=== PATIENT | male | born 2000 | race Caucasian/White ===

== ENCOUNTER 2023-01-11 12:38 | Outpatient (CLI) | payer BC, SELFPAY | END 2023-01-11 12:39 | disposition home or self-care (01) | PROVIDERS: PCP Family Medicine; Visit Provider Physician Assistant Medical | DX: R53.83 Other fatigue (principal) | CPT/HCPCS: 82306; 84443 ==

== ENCOUNTER 2023-04-04 12:39 | Emergency (ER) | payer OTHER, BC, SELFPAY ==
[2023-04-04 12:44] VITALS: BP 100/60; PULSE 84; RESP 16; TEMP 36.7; O2SAT 96; BMI 17.8
--- NOTE | 2023-04-04 13:08 | ED_ITS ---
HPI - Wound/Laceration General Chief Complaint: Laceration/Wound Stated Complaint: R pointer finger lac Time Seen by Provider: 04/04/23 12:42 History of Present Illness HPI narrative: This 22-year-old male comes in with a laceration to his right index finger. He was using a knife and accidentally cut into the distal portion of the right index finger. He has a laceration extending half-way through the midportion of the nail. They skin around this area not much involved. The primary laceration is actually through the top portion of the fingernail. The patient is unsure of his tetanus status. Related Data Home Medications Medication Instructions Recorded Confirmed No Known Home Medications 04/04/23 04/04/23 Allergies Allergy/AdvReac Type Severity Reaction Status Date / Time No Known Allergies Allergy Unknown Verified 01/11/23 11:39 Review of Systems Status of ROS: Reports: 10 or more systems reviewed and unremarkable except as noted in History and below Narrative: Constitutional: No fevers, no weight gain or loss. Eyes: No discharge. No vision changes. HENT: No congestion, no sore throat, no ear pain. Cardiovascular: No chest pain, no palpitations. Respiratory: No shortness of breath, no wheezes, no cough. Gastrointestinal: No abdominal pain, no vomiting, no diarrhea. Genitourinary: No dysuria, no hematuria. Musculoskeletal: Normal range of motion. Skin: No rashes, no pruritis. Neurological: No dizziness, weakness, sensory change, speech change. Endo/Heme/Allergies: No bruising or bleeding. No polydipsia. Pysch: no suicidality, no anxiety, no insomnia. All other systems reviewed and are negative. [facility] Medical History (Updated 04/04/23 @ 13:11 by Ariel Zuniga MD) Neck pain ?M54.2 - Cervicalgia (ICD-10) No significant past medical history Surgical History No significant past surgical history Social History Narrative: electronic cigarette use marijuana use Smoking Status: Never smoker Do you use any of these nicotine containing products: Vaping Products Second hand tobacco smoke exposure: No How often do you have a drink containing alcohol: never How often do you have six or more drinks on one occasion: Never AUDIT-C Alcohol total score: 0 Non-prescribed substance use: marijuana (any form) Little interest or pleasure in doing things: nearly every day Feeling down, depressed, or hopeless: more than half the days Exam Narrative: Exam Narrative: Constitutional: Well-developed, well-nourished, no acute distress. HEENT: Normocephalic, atraumatic. Neck: Normal range of motion. Nontender. Supple. Heart: Intact distal pulses. Lungs: No chest discomfort. No wheezes, rhonchi, or rales. Abdomen: Nontender. Back: Normal range of motion. Extremities: Normal range of motion. 1 cm laceration involving the right index finger nail. Skin: Intact. No rash. Warm. No erythema or pallor. Neurologic: No altered sensation. No weakness. Alert and oriented. Psychiatric: No suicidality. No anxiety or depression. No insomnia. Nursing notes and vitals signs are reviewed. Const: Vital Signs, click to edit/add: Vital Signs - 24 hr 04/04/23 12:44 Temperature 98.1 F Pulse Rate [Pulse Oximeter] 84 Respiratory Rate 16 Blood Pressure [Ri ght Upper Arm] 100/60 Pulse Oximetry 96 Oxygen Delivery Me thod Room Air Course Vital Signs Vital signs: Initial Vital Signs Temperature 98.1 F 04/04/23 12:44 Temperature Source Temporal Artery Scan 04/04/23 12:44 Pulse Rate 84 04/04/23 12:44 Respiratory Rate 16 04/04/23 12:44 Blood Pressure 100/60 04/04/23 12:44 Blood Pressure Mean 73 04/04/23 12:44 Blood Pressure Position Sitting 04/04/23 12:44 Pulse Oximetry 96 04/04/23 12:44 Oxygen Delivery Method Room Air 04/04/23 12:44 Vital Signs Temperature 98.1 F 04/04/23 12:44 Pulse Rate 84 04/04/23 12:44 Respiratory Rate 16 04/04/23 12:44 Blood Pressure 100/60 04/04/23 12:44 Pulse Oximetry 96 04/04/23 12:44 Oxygen Delivery Method Room Air 04/04/23 12:44 Temperature 98.1 F 04/04/23 12:44 Pulse Rate 84 04/04/23 12:44 Respiratory Rate 16 04/04/23 12:44 Blood Pressure 100/60 04/04/23 12:44 Pulse Oximetry 96 04/04/23 12:44 Oxygen Delivery Method Room Air 04/04/23 12:44 MDM - Wound/Laceration MDM Narrative Medical decision making narrative: This patient has a laceration in the right index finger nail. There is no particular displacement or gap as a result of this wound. There is no indication for suture repair. Dermabond was applied after cleansing the wound. The patient did receive a tetanus vaccination. Instructions were given regarding wound care. Discharge Plan Discharge Clinical Impression: Laceration Patient Disposition: Home, Self-Care Condition: Stable Additional Instructions: Keep wound clean and dry. Follow up with MD as needed. Return if worsening. Prescriptions: No Action No Known Home Medications Follow Up/Referrals: Danny Muro MD [Primary Care Provider] - [facility]
--- NOTE | 2023-04-04 13:20 | ED.NURSE ---
pt came in with a cut on the right pointer finger from a serrated knife cutting food at work. Cut was cleansed with chlorhexidine gluconate and sterile water. put Dermabond on cut. Bleeding was controlled.
--- NOTE | 2023-04-04 14:02 | ED.NURSE ---
Followed care with primary and agreed with assessments.
== END 2023-04-04 14:04 | disposition home or self-care (01) ==
LOC: ED 13:42
PROVIDERS: Emergency Provider Emergency Medicine Emergency Medical Services; PCP Physician Assistant Medical
DX: S61.210A Laceration without foreign body of right index finger without damage to nail, initial encounter (principal)
CPT/HCPCS: 90471; 99283; 99284

== ENCOUNTER 2023-11-27 16:38 | Emergency (ER) | payer BC, SELFPAY ==
[2023-11-27 17:11] VITALS: BP 100/63; PULSE 69; RESP 16; TEMP 37.5; O2SAT 98; BMI 17.8
--- OUTSIDE RECORDS SUMMARY | 2023-11-27 20:37 | XMS_ITS | Encounter Summary ---
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 Role Phone [facility]- Primary Care Provider Encounter Details Date Type Department Care Team (Latest Contact Info) Description 07/24/2023 Travel Social History Tobacco Use Types Packs/Day Years Used Date Smoking Tobacco: Former Smokeless Tobacco: Never Alcohol Use Standard Drinks/Week Comments Yes 0 (1 standard drink = 0.6 oz pur e alcohol) Sex and Gender Information Value Date Recorded Sex Assigned at Not on file Gender Identity Not on file Sexual Orientation Not on file COVID-19 Exposure Response Date Recorded In the last 10 days, have yo u been in contact with someone who was confirmed or suspected to have Coronavirus/COVID-19? No / Unsure 07/24/2023 5:03 AM CDT documented as of this encounter Plan of Treatment Not on file documented as of this encounter Visit Diagnoses Not on filedocumented in this encounter Care Teams Bicycle Fitter Relationship Specialty Start Date End Date [facility]- [address] [place] [address] PCP - General 07/24/23 documented as of this encounter
--- OUTSIDE RECORDS SUMMARY | 2023-11-27 20:37 | XMS_ITS | Clinical Summary ---
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 Phone Unavailable Primary Care Provider Unavailabl e Allergies No known active allergies Medications No known medications Immunizations Name Administration Dates Next Due COVID-19 Vaccine: Pfizer Dos e 1 (Purple- 12+ Yrs) [facility] 03/04/2021 Tdap (7 years and older) 07/13/2017 Social History Tobacco Use Types Packs/Day Years Used Date Smoking Tobacco: Never Assessed Sex and Gender Information Value Date Recorded Sex Assigned at Not on file Gender Identity Not on file Sexual Orientation Not on file Job Start Date Occupation Industry Not on file Not on file Not on file Last Filed Vital Signs Vital Sign [place] Time Taken Comments Blood Pressure 127/72 07/13/2017 10:21 PM CDT Pulse 88 07/13/2017 10:21 PM CDT Temperature 36.6 ??C (97.9 ??F) 07/13/2017 10:21 PM C DT Respiratory Rate 16 07/13/2017 10:21 PM CDT Oxygen Saturation 99% 07/13/2017 10:21 PM CDT Inhaled Oxygen Concentration - - Weight 61.2 kg (135 lb) 07/13/2017 10:21 PM CDT Height 182.9 cm (6') 07/13/2017 10:21 PM CDT Body Mass Index 18.31 07/13/2017 10:21 PM CDT Plan of Treatment Health Maintenance Due Date Last Done Comments Hepatitis B Vaccine (Standin g Order) (1 of 3 - 3-dose series) 2002 HPV Vaccine (Standing Order) (1 - Male 2-dose series) 2011 COVID-19 Vaccine (2 - 2022-2 4 season) 2023 03/04/2021 Influenza Vaccine Seasonal (Standing Order) (#1) 2023 TETANUS (Standing Order) 07/13/2027 07/13/2017 PERTUSSIS (Standing Order) Completed 07/13/2017 Pneumococcal/PCV20 Vaccine: Pediatrics (2-5 yrs) and At-Risk Patients (6-64 yrs) (Standing Order) Aged Out No longer eligible b ased on patient's age to complete this topic
--- OUTSIDE RECORDS SUMMARY | 2023-11-27 20:37 | XMS_ITS | Encounter Summary ---
Author Name Unknown Organization [place] Address [facility] [place] [address] Care Team Providers Care Wharf Tender Head Name Role Phone [facility]- Primary Care Provider Reason for Visit * Reason Comments Suicidal Encounter Details Date Type Department Care Team (Late st Contact Info) Description 07/24/2023 5:01 AM CDT - 07/24/2023 7:34 AM CDT [facility] Emergency Dept [address] [place] [address] Laron Gonzalez MD [facility] [address] [place] [address] Laron Carpio MD [facility] [address] [place] [address] Severe episode of recurrent major depressive disorder, without psychotic features (H) Discharge Disposition: Home or Self Care Social History Tobacco Use Types Packs/Day Years [...] AM CDT documented as of this encounter Last Filed Vital Signs Vital Sign Reading Time Taken Comments Blood Pressure 114/68 07/24/2023 7:18 AM CDT Pulse 60 07/24/2023 7:18 AM CDT Temperature 37.1 ??C (98.8 ??F) 07/24/2023 5:05 AM CD T Respiratory Rate 16 07/24/2023 7:18 AM CDT Oxygen Saturation 99% 07/24/2023 7:18 AM CDT Inhaled Oxygen Concentration - - Weight - - Height - - Body Mass Index - - documented in this encounter Discharge Instructions * Discharge Instructions* Laron Gonzalez MD - 07/24/2023 6:39 AM CDT Aftercare Plan If I am feeling unsafe or I am in a crisis, I will: Contact my established care providers Call the National Suicide Prevention Lifeline: 988 Go to the nearest emergency room Call 911 Warning signs that I or other people might notice when a crisis is developing for me: Depression Anxiety Handling job stress, switching jobs Living situation Stress surrounding Trista, if she is going out of state for college or not Not being able to do certain hobbies; technology repair, technology programming, audio engineering,video game creation, music production etc. Things I am able to do on my own to cope or help me feel better: Keeping a routine Play an instrument Clean apartment Showering Eat something healthy Things that I am able to do with others to cope or help me better: See a movie with a friend Visit a friend Have company over Play video games Going for a ride in the car and listen to music Things I can use or do for distraction: See a movie with a friend Visit a friend Have company over Play video games Going for a ride in the car and listen to music Keeping a routine Play an instrument Clean apartment Showering Eat something healthy Changes I can make to support my mental health and wellness: Start therapy Exercise 2-3 times per week for at least 20-30 minutes Improve sleep habits / hygiene No electronics at least 2 hours prior Drink plenty of water Eat healthy meals Avoid sugar, caffeine, alcohol and nicotine Reading People in my life that I can ask for help: Jesus Weston [facility] has a mental health crisis team you can call 08/05: [facility] [phone] Individual Therapy information: Date: 07/27/2023 Time: 11:00 am - 12:00 pm Provider: Liv Chavarria Supervised by: Kurt MUELLER LOIN PULLER Location: [facility], [facility] [address], [address], [place] [address] Type: Therapy - Initial (In-Person) Crisis Lines Crisis Text Line Text 974004 You will be connected with a trained live crisis counselor to provide support. Por espanol, texto CAROLINA a 886025 o texto a 442-AYUDAME en WhatsApp The [facility] (LGBTQ Youth Crisis Line) text START to 380-205 eDoor[employer] Fast Tracker Linking people to mental health and substance use disorder resources ViaCytetraDynatherm Medicaln.[employer] [place] Mental Health Warm Line Peer to peer support Monday thru Monday, 12 pm to 10 pm [phone] or [place] [address]79 National [place] on Mental Illness (JANE) 898.206.5766 or 1.888.JANE.HELPS Mental Health Apps My3 https://Tradesparqpp.org/ VirtualHopeBox https://Tytanium Ideas.org/apps/vazszcc-pcet-flf/ Additional Information Today you were seen by a licensed mental health professional through Triage and Transition services, [facility] (P) for a crisis assessment in the Emergency Department at [facility]. It is recommended that you follow up with your established providers (psychiatrist, mental health therapist, and/or primary care doctor - as relevant) as soon as possible. Coordinators from [facility] will be calling you in the next 24-48 hours to ensure that you have the resources you need. You can also contact [facility] coordinators directly at [phone]. You may have been scheduled for or offered an appointment with a mental health provider. [facility] maintains an extensive network of licensed [facility] providers to connect patients with the services they need. We do not charge providers a fee to participate in our referral network. We match patients with providers based on a patient's specific needs, insurance coverage, and location. Our first effort will be to refer you to a provider within your care system, and will utilize providers outside your care system as needed. * Attachments The following attachments cannot be sent through Care Everywhere. * Depression: Self Care ([place]an) documented in this encounter Medications at Time of Discharge Medication Sig Dispensed Refills Start Date End Date omeprazole (PRILOSEC) [address] capsuleIndications:Abdom inal pain, generalized Take 1 capsule (40 mg) by mouth daily 14 capsule 0 02/20/2022 documented as of this encounter Consult Notes * Lobo Brigida, LOIN PULLER - 07/24/2023 5:44 AM CDTAssociated Order(s): DIAGNOSTIC EVALUATION CENTER (DEC) ASSESSMENT ORDER Diagnostic Evaluation Consultation Crisis Assessment Patient Name: Yanick Meredith Age: [age] year old Legal Sex: male Gender Identity: male Pronouns: Race: White Ethnicity: Not or Language: [place] Patient was assessed: Virtual: XenoOne Crisis Assessment Start Time: 543 Crisis Assessment Stop Time: 637 Patient location: [facility] EMERGENCY DEPT Referral Data and Chief Complaint Yanick Meredith presents to the ED via EMS. Patient is presenting to the ED for the following concerns: Depression, Suicidal ideation. Factors that make the mental health crisis life threatening or complex are: Pt states he came to ED because he was not able to shake his suicidal thoughts like he hasin the past. Pt states he had a rough night, awful day at work ([employer]), then went home at which point pt had already had forms of suicidal thoughts. Pt was getting cold signs from girlfriend and they got into an argument about their living situations and talk about ending the relationship. Pt'sgirlfriend mentioned she would like to go to another State for college. No talk about whether they would stay together. Pt states he is expecting the worse so he is not surprised which is bringing him down. Pt has been together with Trista for the past year. Pt would like to get help, learning how to handle his emotions better especially around anger, sadness, depression.. Informed Consent and Assessment Methods Explained the crisis assessment process, including applicable information disclosures and limits toconfidentiality, assessed understanding of the process, and obtained consent to proceed with the assessment. Assessment methods included conducting a formal interview with patient, review of medical records, collaboration with medical staff, and obtaining relevant collateral information from familyand community providers when available. : done Patient response to interventions: eager to participate, verbalizes understanding Coping skills were attempted to reduce the crisis: Medication management in the past. History of the Crisis Pt states he was first diagnosed with depression and anxiety when he was 17 or 18 years old. Pt reports taking medication in the past, not for an extended period of time. Pt states he normally stops taking the medication when there is a downward motion to his moods or if he doesn't feel good on themedications. Pt last took medication about 9-10 months ago. He couldn't remember what he last took.He feels he had been taking it for about 3 weeks and could not remember why he stopped this time. Brief Psychosocial History Family: Lives with Significant Other, Children no Support System: Significant Other, Parent(s), Sibling(s), Other (specify) (Jesus's Helen) Employment Status: employed part-time Source of Income: salary/wages Financial Environmental Concerns: (Is unsure what Trista will be doing for school and living.) Current Hobbies: social media/computer activities, outdoor activities, other (see comments), music,interaction with pets, television/movies/videos (Skateboarding) Barriers in Personal Life: other (see comments) (Pt at times has a creative block) Significant Clinical History Current Anxiety Symptoms: racing thoughts, excessive worry, anxious Current Depression/Trauma: sense of doom, negativistic, crying or feels like crying, excessive guilt, sadness, hopelessness, helplessness, irritable, low self esteem, thoughts of /suicide Current Somatic Symptoms: racing thoughts, excessive worry, anxious Current Psychosis/Thought Disturbance: anger, hostile/aggressive Current Eating Symptoms: loss of appetite Chemical Use History: Alcohol: None Benzodiazepines: None Opiates: None Cocaine: None Marijuana: Daily Last Use:: 07/23/23 Other Use: None Past diagnosis: Anxiety Disorder, Depression Family history: Substance Use Disorder Past treatment: Psychiatric Medication Management Details of most recent treatment: Pt has attempted medication management since the age of 15-18 andlast took medication about 9-10 months ago. No other treatment hx. Other relevant history: Pt denied any legal issues. Collateral Information Is there collateral information: Yes Collateral information name, relationship, phone number: Katiuska Baxter @ [phone] What happened today: Girlfriend sleeping on the couch at Jesus's right now. Called Jesus marleni in thenight. Yanick made a comment about wanting to kill himself and asked her to call 911. All more his mental health, all stemming from the passing of mom in 2014. Boyfriend of mom killed her, which has been difficult for the pt. What is different about patient's functioning: Hasn't dealt with mom's . Has tried to get pt help when he was under 20. Makes statements to get attention, it's all about me. Has patient made comments about wanting to kill themselves/others: yes If d/c is recommended, can they take part in safety/aftercare planning: yes (Absolutely, will take the day off to spend time with pt to have the fatherly conversation.) Risk Assessment [place] Suicide Severity Rating Scale Full Clinical Version: Suicidal Ideation Q1 Wish to be (Lifetime): Yes Q2 Non-Specific Active Suicidal Thoughts (Lifetime): Yes 3. Active Suicidal Ideation with any Methods (Not Plan) Without Intent to Act (Lifetime): No Q4 Active Suicidal Ideation with Some Intent to Act, Without Specific Plan (Lifetime): No Q5 Active Suicidal Ideation with Specific Plan and Intent (Lifetime): No Q6 Suicide Behavior (Lifetime): yes Suicidal Behavior (Lifetime) Actual Attempt (Lifetime): No Has subject engaged in non-suicidal self-injurious behavior? (Lifetime): No Interrupted Attempts (Lifetime): No Aborted or Self-Interrupted Attempt (Lifetime): No Preparatory Acts or Behavior (Lifetime): No [place] Suicide Severity Rating Scale Recent: Suicidal Ideation (Recent) Q1 Wished to be (Past Month): yes Q2 Suicidal Thoughts (Past Month): yes Q3 Suicidal Thought Method: no Q4 Suicidal Intent without Specific Plan: no Q5 Suicide Intent with Specific Plan: no Level of Risk per Screen: low risk Intensity of Ideation (Recent) Most Severe Ideation Rating (Past 1 Month): 3 Frequency (Past 1 Month): 2-5 times in week Duration (Past 1 Month): Less than 1 hour/some of the time Controllability (Past 1 Month): Easily able to control thoughts Deterrents (Past 1 Month): Does not apply Reasons for Ideation (Past 1 Month): Does not apply Suicidal Behavior (Recent) Actual Attempt (Past 3 Months): No Total Number of Actual Attempts (Past 3 Months): 0 Has subject engaged in non-suicidal self-injurious behavior? (Past 3 Months): No Interrupted Attempts (Past 3 Months): No Total Number of Interrupted Attempts (Past 3 Months): 0 Aborted or Self-Interrupted Attempt (Past 3 Months): No Total Number of Aborted or Self-Interrupted Attempts (Past 3 Months): 0 Preparatory Acts or Behavior (Past 3 Months): No Total Number of Preparatory Acts (Past 3 Months): 0 Environmental or Psychosocial Events: challenging interpersonal relationships, helplessness/hopelessness, other (see comment) (poor finances) Protective Factors: Protective Factors: strong cook to family unit, community support, or employment, responsibilities and duties to others, including pets and children, lives in a responsibly safe and stable environment, sense of importance of health and wellness, able to access care without barriers, help seeking, good problem-solving, coping, and conflict resolution skills, sense of belonging,optimistic outlook - identification of future goals Does the patient have thoughts of harming others? Feels Like Hurting Others: no Previous Attempt to Hurt Others: no Is the patient engaging in sexually inappropriate behavior?: no Is the patient engaging in sexually inappropriate behavior? no Mental Status Exam Affect: Appropriate Appearance: Appropriate Attention Span/Concentration: Attentive Eye Contact: Engaged Fund of Knowledge: Appropriate Language /Speech Content: Fluent Language /Speech Volume: Normal Language /Speech Rate/Productions: Normal Recent Memory: Intact Remote Memory: Intact Mood: Depressed Orientation to Person: Yes Orientation to Place: Yes Orientation to Time of Day: Yes Orientation to Date: Yes Situation (Do they understand why they are here?): Yes Psychomotor Behavior: Normal Thought Content: Clear Thought Form: Intact Medication Psychotropic medications: Medication Orders - Psychiatric (From admission, onward) None Current Care Team Patient Care Team: [facility]- as PCP - General Diagnosis Patient Active Problem List Diagnosis Code Attention deficit hyperactivity disorder (ADHD) F90.9 Anxiety and depression F41.9, F32.A Primary Problem This Admission Active Hospital Problems Anxiety and depression Clinical Summary and Substantiation of Recommendations After therapeutic assessment, intervention and aftercare planning by ED care team and LM and in consultation with attending provider, the patient's circumstances and mental state were appropriate for outpatient management. It is the recommendation of this clinician that pt discharge with OP MH support. At this time the pt is not presenting as an acute risk to self or others due to the followingfactors: Pt endorses recent suicidal thoughts, with no intent or plans to harm himself. Pt is able to develop a safety plan and feels he is safe and can be safe to discharge home. Pt's father has taken today off to spend time with the pt. Pt was scheduled for individual therapy, to begin this . Pt was clam and cooperative for the assessment, making approriate eye contact with service writer advisor. Pt seems future oriented. Patient coping skills attempted to reduce the crisis: Medication management in the past. Disposition Recommended disposition: Individual Therapy, Medication Management Reviewed case and recommendations with attending provider. Attending Name: Dr Gonzalez Attending concurs with disposition: yes Patient and/or validated legal guardian concurs with disposition: yes Final disposition: discharge Legal status on admission: Voluntary/Patient has signed consent for treatment Assessment Details Total duration spent with the patient: 54 min CPT code(s) utilized: 69089 - Psychotherapy for Crisis - 60 (30-74*) min ALPESH Bowles, Psychotherapist [facility] - Triage & Transition Services Callback: [phone] documented in this encounter ED Notes * Margarita Leahy RN - 07/24/2023 7:31 AM CDT Patient A&Ox4, GCS 15. AVS printed and reviewed with patient. F/u appointment already made. Allowed time to ask questions,all questions answered. Belongings retrieved from DEC office and returnedto patient. Discharge home. * Javi Smallwood RN - 07/24/2023 5:20 AM CDT Bed: ED17 Expected date: Expected time: Means of arrival: Comments: Hallway - SI * Brodie Luo RN - 07/24/2023 5:15 AM CDT Patient searched but remains in clothing and has phone. Other belongings placed in DEC room. 1:1 initiated with 15 minute checks. * Brodie Luo RN - 07/24/2023 5:06 AM CDT Patient lives independently with girlfriend. Patient has a history of depression. He is prescribed fluoxetine but has not been taking it because he does not like the way it makes him feel. Patient ishaving an increased in suicidal thoughts without an active plan. Patient endorses that he and his gi rlfriend have been having some troubles an arguments. Patient feels hopeless and feels that is he does not do anything with his life soon then he will have to harm himself. * France Shelby RN - 07/24/2023 5:01 AM CDT Bed: [facility] Expected date: Expected time: Means of arrival: Comments: [id number] * Laron Gonzalez MD - 07/24/2023 5:01 AM CDT History Chief Complaint: Suicidal The history is provided by the patient. Yanick Meredith is a 23 year old male with a history of depressive disorder who presents to the emergency department for suicidal ideation. The patient states that at the age of 17, he was diagnosed with depression and anxiety. He reports that for years, he has been experiencing depression and anxiety but today, it all hit at once. He adds that he was having a conversation with his girlfriend andexpressed suicidal ideations which is why he presents to the emergency department today. He notes that he is prescribed medications but does not take them currently. Denies seeing a therapist. Deniesalcohol or drug use. Independent Historian: None - Patient Only Review of External Notes: I reviewed the patient's Care Everywhere and updated Epic. Medications: omeprazole (PRILOSEC) [address] yaa Past Medical History: Past Medical History: Diagnosis Date Depressive disorder Past Surgical History: No past surgical history on file. Physical Exam Patient Vitals for the past 24 hrs: BP Temp Temp src Pulse Resp SpO2 07/24/23 0505 128/66 98.8 ??F (37.1 ??C) Oral 73 16 98 % Physical Exam Nursing note and vitals reviewed. Constitutional: Cooperative. Cardiovascular: Normal rate, regular rhythm and normal heart sounds. No murmur. Pulmonary/Chest: Effort normal and breath sounds normal. No respiratory distress. Abdominal: Normal appearance Neurological: Alert. Oriented x3 Skin: Skin is warm and dry. Psychiatric: Depressed mood and affect. Suicidal thoughts without a plan. No psychosis Emergency Department Course Interventions: None Assessments: 522 I obtained history and examined the patient as noted above. Independent Interpretation (X-rays, CTs, rhythm strip): None Consultations/Discussion of Management or Tests: 06 I spoke with [facility]. They have arranged for the patient, outpatient care. Social Determinants of Health affecting care: None Disposition: The patient was discharged to home. Impression & Plan Medical Decision Makin-year-old male who presents with depression and thoughts of suicidal ideation. He has no plan andcontracts for safety. He has been evaluated by our [facility] premium service representative who has arranged expedited outpatient mental health therapy follow-up on . The patient's father is able to come get him and provide transport home. No signs of psychosis. Patient is comfortable with this discussion and outpatient plan Diagnosis: ICD-10-CM 1. Severe episode of recurrent major depressive disorder, without psychotic features (H) F33.2 Scribe Disclosure: Rene Hahn, am serving as a scribe at 5:44 AM on 07/24/2023 to document services personally performed by Laron Gonzalez MD based on my observations and the provider's statements to me. 07/24/2023 Laron Gonzalez MD Amdahl, John, MD 07/24/23 0753 documented in this encounter Plan of Treatment Not on file documented as of this encounter Visit Diagnoses Diagnosis Severe episode of recurrent major depressive disorder, without psychotic features (H) Anxiety and depression Dysthymic disorder documented in this encounter Care Teams Wharf Tender Head Relationship Specialty Start Date End Date [facility] [address], [place] [address] PCP - General 07/24/23 documented as of this encounter
--- OUTSIDE RECORDS SUMMARY | 2023-11-27 20:37 | XMS_ITS | Clinical Summary ---
Author Name Unknown Organization [place] Address [facility] [place] [address] Care Team Providers Care Cup Setter Lockstitch Name Role Phone [facility]- Primary Care Provider Allergies No known active allergies Medications Medication Sig Dispensed Refills Start Date End Date Status omeprazole (PRILOSEC) [address] capsuleIndications:Ab dominal pain, generalized Take 1 capsule (40 mg) by mouth daily 14 capsule 0 02/20/2022 Active Active Problems Problem Noted Date Diagnosed Date Attention deficit hyperactivity disorder (ADHD) 07/24/2023 Anxiety and depression 07/24/2023 Social History Tobacco Use Types Packs/Day Years Used Date Smoking Tobacco: Former Smokeless Tobacco: Never Alcohol Use Standard Drinks/Week Comments Yes 0 (1 standard drink = 0.6 oz pur e alcohol) Adolescent Education Answer Date Record ed Getting School Help Needed Not on file 08/10 Sex and Gender Information Value Date Recorded Sex Assigned at Not on file Gender Identity Not on file Sexual Orientation Not on file Last Filed Vital Signs Vital Sign Reading Time Taken Comments Blood Pressure 114/68 07/24/2023 7:18 AM CDT Pulse 60 07/24/2023 7:18 AM CDT Temperature 37.1 ??C (98.8 ??F) 07/24/2023 5:05 AM CD T Respiratory Rate 16 07/24/2023 7:18 AM CDT Oxygen Saturation 99% 07/24/2023 7:18 AM CDT Inhaled Oxygen Concentration - - Weight 59 kg (130 lb) 02/20/2022 12:11 PM CDT Height - - Body Mass Index - - Plan of Treatment Health Maintenance Due Date Last Done Comments ADVANCE CARE PLANNING 2002 ANNUAL REVIEW OF HM ORDERS 2002 DEPRESSION ACTION PLAN 2002 HEPATITIS B IMMUNIZATION (1 of 3 - 3-dose series) 2002 PHQ-9 2002 YEARLY PREVENTIVE VISIT 2002 HPV IMMUNIZATION (1 - Male 2-dose series) 2013 HIV SCREENING 2017 DTAP/TDAP/TD IMMUNIZATION (2 - Td or Tdap) 08/10/2017 07/13/2017 HEPATITIS C SCREENING 2020 COVID-19 Vaccine (4 - 2022-2 4 season) 2023 06/07/2022, 06/07/2022, 03/04/2021 INFLUENZA VACCINE (#1) 2023 2, 12/12/2018 IPV IMMUNIZATION Aged Out No longer e ligible based on patient's age to complete this topic MENINGITIS IMMUNIZATION Aged Out No l onger eligible based on patient's age to complete this topic Pneumococcal Vaccine: Pediatrics (0 to 5 Years) and At-Risk Patients (6 to 64 Years) Aged Out No longer eligible b ased on patient's age to complete this topic RSV MONOCLONAL ANTIBODY Aged Out No l onger eligible based on patient's age to complete this topic Care Teams Cup Setter Lockstitch Relationship Specialty Start Date End Date [facility]- [address] [place] [address] PCP - General 07/24/23
--- OUTSIDE RECORDS SUMMARY | 2023-11-27 20:37 | XMS_ITS | Referral Summary ---
Author Name Unknown Organization [place] Address [facility] [place] [address] Care Team Providers Care Recreation Leader Name Role Phone [facility]- Primary Care Provider Allergies No known [...] Mass Index - - Plan of Treatment Not on file Care Teams Recreation Leader Relationship Specialty Start Date End Date [facility]- [address] [place] [address] PCP - General 07/24/23
--- NOTE | 2023-11-27 20:54 | ED.GENADULT ---
HPI - General Adult General Chief complaint: Extremity Pain/Injury, Lower Stated complaint: R knee pain Time Seen by Provider: 11/27/23 19:54 History of Present Illness HPI narrative: This 23-year-old male comes in reporting right knee pain that sometimes seems to radiate up toward his right hip. This is been happening for the past couple weeks. He does not report any injury event or strenuous activity. He denies having any symptoms of instability or catching or locking. He does not have any swelling or joint effusion. The patient states that he does walk 2 miles to work and again 2 miles back home at the end of the day. During the day he is standing and active all day. This is a new job for him that he started a couple months ago. Related Data Home Medications Medication Instructions Recorded Confirmed No Known Home Medications 04/04/23 04/04/23 Previous Rx's Medication Instructions Recorded ketorolac 10 mg tablet 10 mg PO TID 5 days #15 tabs 11/27/23 methylprednisolone 4 mg tablets in See Rx Instructions PO .COMPLEX 11/27/23 a dose pack (Medrol (Jorge)) #21 ea Allergies Allergy/AdvReac Type Severity Reaction Status Date / Time No Known Allergies Allergy Unknown Verified 11/27/23 17:15 Review of Systems Status of ROS: Reports: 10 or more systems reviewed and unremarkable except as noted in History and below Narrative: Constitutional: No fevers, no weight gain or loss. Eyes: No discharge. No vision changes. HENT: No congestion, no sore throat, no ear pain. Cardiovascular: No chest pain, no palpitations. Respiratory: No shortness of breath, no wheezes, no cough. Gastrointestinal: No abdominal pain, no vomiting, no diarrhea. Genitourinary: No dysuria, no hematuria. Musculoskeletal: Normal range of motion. Right knee pain as described above. Skin: No rashes, no pruritis. Neurological: No dizziness, weakness, sensory change, speech change. Endo/Heme/Allergies: No bruising or bleeding. No polydipsia. Pysch: no suicidality, no anxiety, no insomnia. All other systems reviewed and are negative. [facility] Medical History (Updated 11/27/23 @ 20:58 by Ariel Zuniga MD) History of suicidal ideation (~07/24/23) ?Z86.59 - Personal history of other mental and behavioral disorders (ICD-10) Neck pain ?M54.2 - Cervicalgia (ICD-10) No significant past medical history Surgical History No significant past surgical history Social History Narrative: electronic cigarette use marijuana use Smoking Status: Current every day smoker Do you use any of these nicotine containing products: Vaping Products Second hand tobacco smoke exposure: No How often do you have a drink containing alcohol: monthly or less How often do you have six or more drinks on one occasion: Never AUDIT-C Alcohol total score: 1 Non-prescribed substance use: marijuana (any form) Little interest or pleasure in doing things: nearly every day Feeling down, depressed, or hopeless: more than half the days service: No Exam Narrative: Exam Narrative: Constitutional: Well-developed, well-nourished, no acute distress. HEENT: Normocephalic, atraumatic. Neck: Normal range of motion. Nontender. Supple. Heart: Regular. No murmurs. Normal rate. Intact distal pulses. Lungs: Clear to auscultation. No chest discomfort. No wheezes, rhonchi, or rales. Abdomen: Normal bowel sounds. Nontender. No rebound tenderness. Genitalia: Deferred. Back: No midline tenderness. Normal range of motion. Extremities: Normal range of motion. No injury. No ligament instability with varus or valgus stress or with Shabbir's test. Roby's test is negative. No joint effusion. Range of motion is intact for the right knee. Skin: Intact. No rash. Warm. No erythema or pallor. Neurologic: No altered sensation. No weakness. Alert and oriented. Psychiatric: No suicidality. No anxiety or depression. No insomnia. Nursing notes and vitals signs are reviewed. Const: Vital Signs, click to edit/add: Vital Signs - 24 hr 11/27/23 17:11 Temperature 99.5 F Pulse Rate [Pulse Oximeter] 69 Respiratory Rate 16 Blood Pressure [Ri ght Upper Arm] 100/63 Pulse Oximetry 98 Oxygen Delivery Me thod Room Air Course Vital Signs Vital signs: Initial Vital Signs Temperature 99.5 F 11/27/23 17:11 Temperature Source Temporal Artery Scan 11/27/23 17:11 Pulse Rate 69 11/27/23 17:11 Pulse Rhythm Regular 11/27/23 17:11 Pulse Strength 3+ Normal 11/27/23 17:11 Respiratory Rate 16 11/27/23 17:11 Blood Pressure 100/63 11/27/23 17:11 Blood Pressure Mean 75 11/27/23 17:11 Blood Pressure Position Sitting 11/27/23 17:11 Pulse Oximetry 98 11/27/23 17:11 Oxygen Delivery Method Room Air 11/27/23 17:11 Vital Signs Temperature 99.5 F 11/27/23 17:11 Pulse Rate 69 11/27/23 17:11 Respiratory Rate 16 11/27/23 17:11 Blood Pressure 100/63 11/27/23 17:11 Pulse Oximetry 98 11/27/23 17:11 Oxygen Delivery Method Room Air 11/27/23 17:11 Temperature 99.5 F 11/27/23 17:11 Pulse Rate 69 11/27/23 17:11 Respiratory Rate 16 11/27/23 17:11 Blood Pressure 100/63 11/27/23 17:11 Pulse Oximetry 98 11/27/23 17:11 Oxygen Delivery Method Room Air 11/27/23 17:11 Medical Decision Making MDM Narrative Medical decision making narrative: This patient comes in reporting right knee pain as described above. It seems that he has no particular injury event or new strenuous activity other than a job that he started a few months ago where he now walks to work 2 miles in the morning and again 2 miles home after the shift. During the day he is very active also. It appears that this is an overuse injury. His exam is completely normal. I did discuss imaging options with the patient but indicated that there is no radiologist to read the images today and they would likely be normal without any particular injury mechanism. The patient did receive a prescription for Medrol Dosepak and Toradol. I advised him to follow-up with orthopedic clinic if not improving. Discharge Plan Discharge Clinical Impression: Acute knee pain Patient Disposition: Home, Self-Care Condition: Stable Additional Instructions: Take medications as prescribed. Modify activity as much as possible or necessary. Follow-up with orthopedic clinic if not improving. Call [phone] for appointment. Prescriptions: New ketorolac 10 mg tablet 10 mg PO TID 5 Days Qty: 15 0RF methylprednisolone [Medrol (Jorge)] 4 mg tablets,dose pack See Rx Instructions .ROUTE .COMPLEX Qty: 21 0RF Rx Instructions: orally per package directions No Action No Known Home Medications Follow Up/Referrals: Conchita Cedillo PA-C [Primary Care Provider] - Stand Alone Forms: [employer] Info Instructions
[2023-11-27 21:01] VITALS: BP 112/74; PULSE 74; RESP 16; TEMP 36.8; O2SAT 98
[2023-11-27 21:02] VITALS: BP 112/74; PULSE 74; RESP 16; TEMP 36.8
== END 2023-11-27 21:02 | disposition home or self-care (01) ==
PROVIDERS: Emergency Provider Emergency Medicine Emergency Medical Services; PCP Physician Assistant Medical
DX: M25.561 Pain in right knee (principal)
CPT/HCPCS: 99284

== ENCOUNTER 2024-02-26 21:33 | Emergency (ER) | payer OTHER, SELFPAY ==
[2024-02-26 22:06] VITALS: BP 113/65; PULSE 86; RESP 18; TEMP 36.9; O2SAT 98; BMI 17.2
--- NOTE | 2024-02-26 22:49 | ED_ITS ---
HPI - General Adult General Date Seen: 02/26/24 Chief complaint: Burn/Smoke Inhalation Stated complaint: L finger lopez Time Seen by Provider: 02/26/24 22:49 History of Present Illness HPI narrative: 23-year-old male with a history of tobacco use, ADHD, anxiety, depression, presenting to the ER today for evaluation of a work related burn. He burned the finger pad of his left index finger (2nd digit) on a flat top grill at work. 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 He picked up an object that had been on the grill and crit suffered a burn to the finger pad of his left index finger. He is not having much pain from the burn but does note a roughly 0.5 x 1 cm whitish blister on the finger. No other injury. No burn affecting the joints of his finger. No lopez on the dorsum of his finger. The patient is unsure of his last tetanus status but, but according to the EMR, his last tetanus was a Tdap in 2017 Related Data Home Medications Medication Instructions Recorded Confirmed No Known Home Medications 04/04/23 04/04/23 Allergies Allergy/AdvReac Type Severity Reaction Status Date / Time No Known Allergies Allergy Unknown Verified 11/27/23 17:15 [facility] Medical History (Updated 02/26/24 @ 23:03 by Jesus Alberto Loaiza MD) History of suicidal ideation (~07/24/23) ?Z86.59 - Personal history of other mental and behavioral disorders (ICD-10) Neck pain ?M54.2 - Cervicalgia (ICD-10) No significant past medical history Surgical History No significant past surgical history Social History Narrative: electronic cigarette use marijuana use Smoking Status: Current every day smoker Do you use any of these nicotine containing products: Vaping Products Second hand tobacco smoke exposure: No How often do you have a drink containing alcohol: monthly or less How often do you have six or more drinks on one occasion: Never AUDIT-C Alcohol total score: 1 Non-prescribed substance use: marijuana (any form) Little interest or pleasure in doing things: nearly every day Feeling down, depressed, or hopeless: more than half the days service: No Exam Narrative: Exam Narrative: Constitutional: Appears well-developed and well-nourished. Non-toxic . Very polite. HENT: Head: Atraumatic. No signs of injury. Nose: No nasal discharge. Mouth/Throat: Mucous membranes are moist. Pharynx is normal. Tonsils symmetric. Uvula midline. Airway patent. Eyes: Conjunctivae normal and EOM are normal. Pupils are equal, round, and reactive to light. Right eye exhibits no discharge. Left eye exhibits no discharge. No icterus. Neck: Normal range of motion. Neck supple. No adenopathy. No stridor. Cardiovascular: Normal rate and regular rhythm. No murmur heard. No murmurs, rubs, or gallops. Brisk capillary refill Pulmonary/Chest: Effort normal. No stridor. No respiratory distress. No wheezes.No rhonchi. No rales. No retractions. Abdominal: Soft. Bowel sounds are normal. No distension. No mass. There is no tenderness. There is no rebound and no guarding. Musculoskeletal: Normal range of motion. No edema. No tenderness. No deformity. He has intact flexion and extension of the MCP, PIP, DI P joint. He has a few healing lopez on his fingers and the dorsum of his hand. His acute burn is affecting his left hand, index finger. He has a 5 x 10 cm irregularly-shaped whitish burn on the finger pad. He does have intact sensation. Normal distal cap refill. No burn crossing joints. Burn is not circumferential. Neurological: Alert. Normal strength. No cranial nerve deficit or sensory deficit. Coordination normal. GCS eye subscore is 4. GCS verbal subscore is 5. GCS motor subscore is 6. Skin: Skin is warm. No rash noted. Const: Vital Signs, click to edit/add: Vital Signs - 24 hr 02/26/24 22:06 Temperature 98.4 F Pulse Rate [Pulse Oximeter] 86 Respiratory Rate 18 Blood Pressure [Ri ght Upper Arm] 113/65 Pulse Oximetry 98 Oxygen Delivery Me thod Room Air Course Vital Signs Vital signs: Initial Vital Signs Temperature 98.4 F 02/26/24 22:06 Temperature Source Temporal Artery Scan 02/26/24 22:06 Pulse Rate 86 02/26/24 22:06 Pulse Rhythm Regular 02/26/24 22:06 Respiratory Rate 18 02/26/24 22:06 Blood Pressure 113/65 02/26/24 22:06 Blood Pressure Mean 81 02/26/24 22:06 Blood Pressure Position Sitting 02/26/24 22:06 Pulse Oximetry 98 02/26/24 22:06 Oxygen Delivery Method Room Air 02/26/24 22:06 Vital Signs Temperature 98.4 F 02/26/24 22:06 Pulse Rate 86 02/26/24 22:06 Respiratory Rate 18 02/26/24 22:06 Blood Pressure 113/65 02/26/24 22:06 Pulse Oximetry 98 02/26/24 22:06 Oxygen Delivery Method Room Air 02/26/24 22:06 Temperature 98.4 F 02/26/24 22:06 Pulse Rate 86 02/26/24 22:06 Respiratory Rate 18 02/26/24 22:06 Blood Pressure 113/65 02/26/24 22:06 Pulse Oximetry 98 02/26/24 22:06 Oxygen Delivery Method Room Air 02/26/24 22:06 Medical Decision Making [facility] Narrative Medical decision making narrative: Very pleasant 23-year-old gentleman who is up-to-date on his tetanus presenting to the ER today with a deep partial-thickness burn affecting the volar finger pad of his left hand index finger. Fortunately not a circumferential burn and the burn does not cross any joints. No evidence for any full-thickness burn or any nail bed burn. No other associated laceration or crush injury here. He is generally healthy. No diabetes or immunosuppression. Anticipate that the skin of this burn will likely pedal off and blister and then will have to heal by secondary intention. At this point the skin is intact. However will apply antibiotic ointment to help soothe the burn and apply dressing to help protected. Discussed with the patient that he needs to apply antibiotic ointment and dressing every day to protect the burn. We discussed wound care and precautions to help prevent infection while the burn heels. He is not having any pain at this point so does not require any prescription pain killers. Note for work provided since this was a work related injury. Discharge Plan Discharge Clinical Impression: Deep partial thickness burn of finger Patient Disposition: Home, Self-Care Condition: Stable Instructions: Second-Degree Burn (ED) Additional Instructions: As we discussed, please keep the burned area clean and covered. Apply antibiotic ointment and Band-Aid once per day. While your work wear gloves or other finger protection to avoid getting the area wet or soiled. The burned skin may blister and peel off. While this is occurring, please apply antibiotic ointment once per day and keep it covered with a Band-Aid until the burn area is healed with fresh new skin. Monitor for signs of infection (redness, swelling, pus draining from the wound) and if you have any concerns, please see your doctor or come back to the ER right away to be rechecked. Prescriptions: No Action No Known Home Medications Follow Up/Referrals: Conchita Cedillo PA-C [Primary Care Provider] - Stand Alone Forms: [employer] Info Instructions
--- NOTE | 2024-02-26 23:01 | ED.NURSE ---
TDap on file, 07/13/2017
--- OUTSIDE RECORDS SUMMARY | 2024-02-26 23:09 | XMS_ITS | Clinical Summary ---
Author Name Unknown Organization [facility] Address [address] [address] Phone Care Team Providers Care Malt House Operator Name Role Phone Unavailable Primary Care Provider Unavailabl e Allergies No known active allergies Medications No known medications Immunizations Name Administration Dates Next Due COVID-19 Vaccine: Pfizer Dos e 1 (Purple- 12+ Yrs) [facility] 03/04/2021 Tdap (7 years and older) [...] Health Maintenance Due Date Last Done Comments HPV Vaccine (Standing Order) (1 - Male 3-dose series) 2017 Hepatitis B Vaccine (Standin g Order) (1 of 3 - 19+ 3-dose series) 2021 COVID-19 Vaccine (2 - 2022-2 4 season) 2023 03/04/2021 Influenza Vaccine Seasonal (Standing Order) (#1) 2023 TETANUS (Standing Order) 07/13/2027 07/13/2017 PERTUSSIS (Standing Order) Completed 07/13/2017 Pneumococcal/PCV20 Vaccine: Pediatrics (2-5 yrs) and At-Risk Patients (6-64 yrs) (Standing Order) Aged Out No longer eligible b ased on patient's age to complete this topic
--- OUTSIDE RECORDS SUMMARY | 2024-02-26 23:09 | XMS_ITS | Referral Summary ---
Author Name Unknown Organization [place] Address [facility] [place] [address] Care Team Providers Care Perfume And Toilet Water Maker Name Role Phone [facility]- Primary Care Provider Allergies No known active allergies Medications Medication Sig Dispensed Refills Start Date End Date Status omeprazole (PRILOSEC) [address] capsuleIndications:Ab dominal pain, generalized Take 1 capsule (40 mg) by mouth daily 14 capsule 02/20/2022 Active Active Problems Problem Noted Date [...] of Treatment Not on file Care Teams Perfume And Toilet Water Maker Relationship Specialty Start Date End Date [facility]- [address] [place] [address] PCP - General 07/24/23
--- OUTSIDE RECORDS SUMMARY | 2024-02-26 23:09 | XMS_ITS | Clinical Summary ---
Author Name Unknown Organization [place] Address [facility] [place] [address] Care Team Providers Care Special Assemblies Supervisor Name Role Phone [facility]- Primary Care Provider Allergies No known [...] HM ORDERS 2002 DEPRESSION ACTION PLAN 2002 PHQ-9 2002 YEARLY PREVENTIVE VISIT 2002 HIV SCREENING 2017 HPV IMMUNIZATION (1 - Male 3-dose series) 2017 DTAP/TDAP/TD IMMUNIZATION (2 - Td or Tdap) 08/10/2017 07/13/2017 HEPATITIS C SCREENING 2020 HEPATITIS B IMMUNIZATION (1 of 3 - 19+ 3-dose series) 2021 COVID-19 Vaccine (4 - 2022-2 4 season) 2023 06/07/2022, 06/07/2022, 03/04/2021 INFLUENZA VACCINE (Season Ended) 2024 06/07/2022, 12/12/2018 IPV IMMUNIZATION Aged Out No longer [...] age to complete this topic Care Teams Special Assemblies Supervisor Relationship Specialty Start Date End Date [facility]- [address] [place] [address] PCP - General 07/24/23
== END 2024-02-26 23:15 | disposition home or self-care (01) ==
LOC: ED 23:08
PROVIDERS: Emergency Provider Emergency Medicine; PCP Physician Assistant Medical
DX: T23.222A Burn of second degree of single left finger (nail) except thumb, initial encounter (principal); X19.XXXA Contact with other heat and hot substances, initial encounter
CPT/HCPCS: 99282; 99283

== ENCOUNTER 2024-08-23 12:35 | Emergency (ER) | payer OTHER, SELFPAY ==
[2024-08-23] VITALS (18 sets, daily range): BP systolic 108–125; BP diastolic 63–92; PULSE 55–82; RESP 16; TEMP 36.8; O2SAT 97–100; BMI 17.8
--- NOTE | 2024-08-23 12:56 | ED_ITS ---
HPI - General Adult General Time Seen by Provider: 12:56 Date Seen: 08/23/24 Chief complaint: Unspecified Complaint, Adult Stated complaint: heart palpatations Time Seen by Provider: 08/23/24 12:41 Source: patient and RN notes reviewed Mode of arrival: ambulatory Limitations: no limitations History of Present Illness HPI narrative: This 24yo male is coming into the ED with concerns of chest symptoms that have been happening for about 1-2 weeks. He notes that he feels like a big beat and then gradually tapers away. Is described as brief, notes that leaning way forward can maybe bring it on but otherwise notes nothing precipitates these. Sleeping fine, not awakening at night with any issues. No respiratory symptoms, no recent illness or cough or cold symptoms. No fevers or chills. No history of any respiratory or lung issues like asthma. Vapes nicotine products, denies alcohol or drugs. 1-2 servings of coffee in morning, no other caffeine. He cannot say it is really painful but maybe feels funny or weird. He did tell nursing staff that he is under more stress at work lately. When asked if it is a flip-flop type feeling in his chest, that really did not resonate. It is not really pain. Related Data Home Medications ?Medication ?Instructions ?Recorded ?Confirmed No Known Home Medications 04/04/23 08/23/24 Allergies Allergy/AdvReac Type Severity Reaction Status Date / Time No Known Allergies Allergy Unknown Verified 08/23/24 12:42 Review of Systems Status of ROS: Reports: 6 or more systems reviewed and unremarkable except as noted in History and below PFSH PFS Medical History History of suicidal ideation (~07/24/23) ?Z86.59 - Personal history of other mental and behavioral disorders (ICD-10) Neck pain ?M54.2 - Cervicalgia (ICD-10) No significant past medical history Surgical History No significant past surgical history Social History Narrative: electronic cigarette use marijuana use Smoking Status: Current every day smoker Do you use any of these nicotine containing products: Vaping Products Second hand tobacco smoke exposure: No How often do you have a drink containing alcohol: monthly or less How often do you have six or more drinks on one occasion: Never AUDIT-C Alcohol total score: 1 Non-prescribed substance use: marijuana (any form) Little interest or pleasure in doing things: nearly every day Feeling down, depressed, or hopeless: more than half the days service: No Exam Const: Vital Signs, click to edit/add: Vital Signs - 24 hr 08/23/24 12:43 08/23/24 12:53 08/23/24 13:00 Temperature 98.2 F Pulse Rate 60 82 Pulse Rate [Pulse Oximeter] 81 Respiratory Rate 16 Blood Pressure Blood Pressure [Ri ght Upper Arm] 125/85 Pulse Oximetry 100 97 98 Oxygen Delivery Me thod Room Air 08/23/24 13:01 08/23/24 13:02 08/23/24 13:15 Temperature Pulse Rate 80 70 62 Pulse Rate [Pulse Oximeter] Respiratory Rate Blood Pressure 125/92 H Blood Pressure [Ri ght Upper Arm] Pulse Oximetry 97 99 100 Oxygen Delivery Me thod 08/23/24 13:30 08/23/24 13:34 08/23/24 13:45 Temperature Pulse Rate 62 66 63 Pulse Rate [Pulse Oximeter] Respiratory Rate Blood Pressure Blood Pressure [Ri ght Upper Arm] Pulse Oximetry 100 100 99 Oxygen Delivery Me thod 08/23/24 14:00 08/23/24 14:02 Temperature Pulse Rate 55 L 56 L Pulse Rate [Pulse Oximeter] Respiratory Rate Blood Pressure 109/73 Blood Pressure [Ri ght Upper Arm] Pulse Oximetry 98 98 Oxygen Delivery Me thod This 24-year-old male is of slender frame and tall. He is alert, interactive, no apparent distress. Pupils equal round reactive, sclera clear, conjugate gaze. Symmetrical facial function. Neck is slender, no adenopathy, no thyromegaly masses or nodules. Lungs are clear, good air entry, no wheezing or crackles, no tachypnea. CV regular rate and rhythm, no murmur, normal S1-S2, no S3-S4. Abdomen soft, nontender, no masses. Patient ambulatory into the ED of his own accord. Documenting provider has reviewed patient's vital signs: yes Course Course ED Course: Patient will be monitored on pulse oximetry and cardiac monitoring. Will see if there is any arrhythmia or premature atrial or ventricular beats. His initial EKG looks normal. Will do some basic labs and obtain a troponin. He is not having significant pain, has difficulty describing these. It could be stress related, could be premature beats, could be short sustained bouts of arrhythmia. Will see what we find here today. Will make sure his electrolytes are stable. Will do a portable chest x-ray just to ensure no changes of cardiopulmonary system on the imaging. He currently is hemodynamically stable and looks quite well. Reevaluation(s) Time of Reevaluation #1: 14:16 Reevaluation #1: Have reviewed normal laboratory evaluation, normal chest x-ray. Patient has had no evidence of arrhythmia here on monitoring. He does have a primary in our system, Conchita Cedillo. Discussed doing a ZIO patch to rule out arrhythmia. He is in agreement to wear this. He can follow up with her to get his results. He understands in the meantime if he is having progressively worsening symptoms, episodes lasting longer, increasing chest pain, other concerning symptoms or worsening, to return here to the ER. Vital Signs Vital signs: Initial Vital Signs Temperature 98.2 F 08/23/24 12:43 Temperature Source Temporal Artery Scan 08/23/24 12:43 Pulse Rate 81 08/23/24 12:43 Respiratory Rate 16 08/23/24 12:43 Blood Pressure 125/85 08/23/24 12:43 Blood Pressure Mean 98 08/23/24 12:43 Blood Pressure Position High-Fowlers 08/23/24 12:43 Pulse Oximetry 100 08/23/24 12:43 Oxygen Delivery Method Room Air 08/23/24 12:43 Vital Signs Temperature 98.2 F 08/23/24 12:43 Pulse Rate 81 08/23/24 12:43 Respiratory Rate 16 08/23/24 12:43 Blood Pressure 125/85 08/23/24 12:43 Pulse Oximetry 100 08/23/24 12:43 Oxygen Delivery Method Room Air 08/23/24 12:43 Temperature 98.2 F 08/23/24 12:43 Pulse Rate 56 L 08/23/24 14:02 Respiratory Rate 16 08/23/24 12:43 Blood Pressure 109/73 08/23/24 14:02 Pulse Oximetry 98 08/23/24 14:02 Oxygen Delivery Method Room Air 08/23/24 12:43 Medical Decision Making Lab Data Lab results reviewed: Yes I reviewed the patient's lab results Labs: Lab Results 08/23/24 Range/Units 13:24 WBC 8.78 (4.50-11.00) K/uL RBC 4.79 (4.30-5.90) m/uL Hgb 14.5 (13.5-17.5) gm/dL Hct 43.0 (37.0-53.0) % MCV 90 (80-100) fL MCH 30 (26-34) pg MCHC 34 (32-36) gm/dL RDW Coeff of José Miguel 12.0 (11.5-15.5) % Plt Count 218 (140-440) K/uL Neut % (Auto) 80.3 H (42.0-72.0) % Lymph % (Auto) 11.5 L (20-44) % [place] % (Auto) 7.2 (0.0-11.0) % Eos % (Auto) 0.7 (0.0-7.0) % Baso % (Auto) 0.1 (0.0-3.0) % Neut # (Auto) 7.10 H (1.7-7.0) K/uL Lymph # (Auto) 1.00 (0.90-2.90) K/uL [place] # (Auto) 0.60 (0.00-0.90) K/UL Eos # (Auto) 0.06 (0.00-0.50) K/uL Baso # (Auto) 0.01 (0.00-0.30) K/uL Abs Immat Gran (auto) 0.02 (0.00-0.30) K/uL Imm/Tot Granulo (auto) 0.2 % Sodium 136 (135-149) mmol/L Potassium 4.2 (3.6-5.1) mmol/L Chloride 101 (96-114) mmol/L Carbon Dioxide 25 (20-32) mmol/L Anion Gap 10 (7-15) mEq/L BUN 19 (5-24) mg/dL Creatinine 0.8 (0.5-1.5) mg/dL Estimated Creat Clear 125.45 Estimated GFR 128 ml/min Glucose 87 (60-115) mg/dL Calcium 9.9 (8.4-10.6) mg/dL Troponin I < 0.01 L (0.01-0.04) ng/mL C-Reactive Protein < 0.5 L (0.5-1.0) mg/dL Imaging Data Chest x-ray: Attestation: I have reviewed the pertinent imaging results. (Sinus rhythm with sinus arrhythmia, 82 beats per minute. QT corrected 446 milliseconds. No ischemia, no infarct.) Radiologist's impression: Patient: KEITH SAEED Facility:?[facility] Patient ID:?[id number] Site Patient ID:?[id number]. Site :?[id number] Study:?XRay-Chest PORTABLE 1 VIEW-08/23/2024 1:18:56 PM Ordering Physician:Jaylan Pichardo Final Report: INDICATION: Chest pain. TECHNIQUE: Chest 1 views. COMPARISON: None. FINDINGS: Cardiovasculature and mediastinum: Heart size is normal. Unremarkable mediastinum. Lungs and pleural spaces: Lungs are clear. No sign of infiltrate or mass. The bilateral costophrenic sulci are not included in the field of view, however there is no definite pleural effusion. No pneumothorax. Bones and soft tissues: No significant findings. IMPRESSION: No acute or significant findings. The bilateral costophrenic sulci are not included in the field of view, however there is no definite pleural effusion. Dictated by Zoraida Billy MD @ 08/23/2024 1:33:12 PM (Electronic Signature) Discharge Plan Discharge Clinical Impression: Palpitation Instructions: Heart Palpitations (ED) Additional Instructions: Where the Zio patch, return as per Radiology recommendations. Please schedule a follow-up with her primary provider in [facility] in the next couple of weeks. If you note you are having worsening symptoms, have increased chest pain, feel like your episodes are lasting longer, have new concerns, return to the ER for further evaluation. Activity Level: Activity as Tolerated Discharge Diet: Regular Prescriptions: No Action No Known Home Medications Follow Up/Referrals: Conchita Cedillo PA-C [Primary Care Provider] - Stand Alone Forms: [employer] Info Instructions
--- NOTE | 2024-08-23 13:04 | CRLHL7_ITS ---
For Patients: As a result of the Century Cures Act, medical imaging exams and procedure reports are released immediately into your electronic medical record. You may view this report before your referring provider. If you have questions, please contact your health care provider. INDICATION: Chest pain. TECHNIQUE: Chest 1 views. COMPARISON: None. FINDINGS: Cardiovasculature and mediastinum: Heart size is normal. Unremarkable mediastinum. Lungs and pleural spaces: Lungs are clear. No sign of infiltrate or mass. The bilateral costophrenic sulci are not included in the field of view, however there is no definite pleural effusion. No pneumothorax. Bones and soft tissues: No significant findings. IMPRESSION: No acute or significant findings. The bilateral costophrenic sulci are not included in the field of view, however there is no definite pleural effusion. Dictated by Zoraida Billy MD @ 08/23/2024 1:33:12 PM (Electronically Signed)
--- OUTSIDE RECORDS SUMMARY | 2024-08-23 13:20 | XMS_ITS | Clinical Summary ---
Author Organization [place] Address [facility] [place] [address] Care Team Providers Care Coffin Maker Name Role Phone 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 Gender Identity Not on file Sexual Orientation [...] 3-dose series) 2021 COVID-19 Vaccine (4 - 2023-2 5 season) 2024 06/07/2022, 06/07/2022, 03/04/2021 INFLUENZA VACCINE (#1) 2024 , 12/12/2018 RSV VACCINE (1 - 1-dose 75+ series) 2077 MENINGITIS IMMUNIZATION Aged Out No l onger eligible based on patient's age to complete this topic Pneumococcal Vaccine: Pediatrics (0 to 5 Years) and At-Risk Patients (6 to 64 Years) Aged Out No longer eligible b ased on patient's age to complete this topic RSV MONOCLONAL ANTIBODY Aged Out No l onger eligible based on patient's age to complete this topic Care Teams Coffin Maker Relationship Specialty Start Date End Date [facility]- [address] [place] [address] PCP - General 07/24/23
--- OUTSIDE RECORDS SUMMARY | 2024-08-23 13:20 | XMS_ITS | Referral Summary ---
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
--- OUTSIDE RECORDS SUMMARY | 2024-08-23 13:20 | XMS_ITS | Clinical Summary ---
Author Organization [facility] Address [address] [address] Phone Care Team Providers Care Powder Core Tester Name Role Phone Unavailable Primary Care Provider Unavailabl e Allergies No known active allergies Medications No known medications Immunizations Name Administration Dates Next Due COVID-19 Vaccine: Pfizer Dos e 1 (Purple- 12+ Yrs) [facility] 03/04/2021 Tdap (7 years and older) 07/13/2017 Social History Tobacco Use Types Packs/Day Years Used Date Smoking Tobacco: Never Assessed Sex and Gender Information Value Date Recorded Sex Assigned at Not on file 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
[2024-08-23 13:31] LABS: Basophils Absolute Auto 0.01 K/uL (0.00-0.30); Basophils Percent Auto 0.1 % (0.0-3.0); Eosinophils Absolute Auto 0.06 K/uL (0.00-0.50); Eosinophils Percent Auto 0.7 % (0.0-7.0); Hemoglobin* 14.5 gm/dL (13.5-17.5); Immature Granulocytes Abs Auto 0.02 K/uL (0.00-0.30); Immature Granulocytes Pct Auto 0.2 %; Lymphocytes Percent Auto 11.5 % (20-44); Mean Corpuscular HGB Conc 34 gm/dL (32-36); Mean Corpuscular Hemoglobin 30 pg (26-34); Mean Corpuscular Volume 90 fL (80-100); Monocytes Percent Auto 7.2 % (0.0-11.0); Neutrophils Percent Auto 80.3 % (42.0-72.0); Platelet Count* 218 K/uL (140-440); Red Blood Count 4.79 m/uL (4.30-5.90); Slide Review Reflex No; White Blood Count* 8.78 K/uL (4.50-11.00)
[2024-08-23 13:43] LABS: Chloride* 101 mmol/L (96-114); Potassium* 4.2 mmol/L (3.6-5.1); Sodium* 136 mmol/L (135-149)
[2024-08-23 13:45] LABS: Creatinine* 0.8 mg/dL (0.5-1.5); Est. Creatinine Clearance* 125.45; Estimated Glomerular Filt Rate 128 ml/min
[2024-08-23 13:46] LABS: Anion Gap 10 mEq/L (7-15); Blood Urea Nitrogen* 19 mg/dL (5-24); Carbon Dioxide* 25 mmol/L (20-32); Glucose* 87 mg/dL (60-115)
[2024-08-23 13:47] LABS: Calcium* 9.9 mg/dL (8.4-10.6)
[2024-08-23 14:01] LABS: C Reactive Protein* < 0.5 mg/dL (0.5-1.0); Troponin I* < 0.01 ng/mL (0.01-0.04)
== END 2024-08-23 15:09 | disposition home or self-care (01) ==
LOC: ED 13:18
PROVIDERS: Emergency Provider Family Medicine; PCP Physician Assistant Medical
DX: R00.2 Palpitations (principal)
CPT/HCPCS: 36415; 71045; 80048; 84484; 85025; 86140; 93005; 93246; 94761; 99284; 99285

== ENCOUNTER 2024-08-25 21:19 | Emergency (ER) | payer OTHER, SELFPAY ==
[2024-08-25 21:21] VITALS: BP 131/73; PULSE 76; RESP 18; TEMP 37.3; O2SAT 97; BMI 17.8
[2024-08-25 21:44] VITALS: PULSE 86; O2SAT 98
[2024-08-25 21:45] VITALS: PULSE 84; O2SAT 95
[2024-08-25 22:00] VITALS: PULSE 69; O2SAT 96
[2024-08-25] MEDS: LORazepam 2 MG/ML inj 0.5 MG IVP (22:06)
--- NOTE | 2024-08-25 22:06 | ED_ITS ---
HPI - General Adult General Chief complaint: Chest Pain Stated complaint: Chest Pain Time Seen by Provider: 08/25/24 21:32 Source: patient Mode of arrival: ambulatory Limitations: no limitations History of Present Illness HPI narrative: 24-year-old presenting today with multiple concerns. He was seen here 2 days ago with chest pain and palpitations. Complete workup was unremarkable and patient was sent home on a ZIO patch which she is currently wearing. He states that since then he has been having a difficult time with chest pain. Chest pain is located all over sometimes on the right, sometimes on the left. Nothing seems to make it better or worse. He is also concerned that he can not quite get enough oxygen into his lungs. He states that he takes big breaths but does not matter helping his breaths are he is not fulfilling his oxygen need. He also states that he has pain in the right leg that comes and goes sometimes the right hip sometimes is the right knee sometimes is the back of the calf s ometimes is the ankle. Sometimes it is sharp sometimes it stool. Does not last very long when it comes. He denies any redness or change in the diameter of his legs. But he is quite concerned that he has a DVT. Patient states that he is quite concerned he also has potentially lung cancer and coronary artery disease. He states that he continues to vape and smoke. He states that he knows these things are bad for him but he has not yet quit. He feels better about this. He also has a history of anxiety that is untreated. He states that he has a friend who has been taking him out to socialize more this sometimes helps but he feels just otherwise overwhelmed. He is not taking any medications. 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 He otherwise stays at home in place video games. He states he has been trying to walk and has recently started jogging. He denies chest pain or shortness of breath out of the ordinary when he is jogging. Patient is here with his father today. Patient denies any thoughts of hurting himself or others. Related Data Previous Rx's ?Medication ?Instructions ?Recorded hydroxyzine HCl 25 mg tablet 25 mg PO TID PRN #10 tabs 08/25/24 Allergies Allergy/AdvReac Type Severity Reaction Status Date / Time No Known Allergies Allergy Unknown Verified 08/23/24 12:42 Review of Systems Status of ROS: Reports: 10 or more systems reviewed and unremarkable except as noted in History and below [facility] Medical History History of suicidal ideation (~07/24/23) ?Z86.59 - Personal history of other mental and behavioral disorders (ICD-10) Neck pain ?M54.2 - Cervicalgia (ICD-10) No significant past medical history Surgical History No significant past surgical history Social History Narrative: electronic cigarette use marijuana use Smoking Status: Current every day smoker Do you use any of these nicotine containing products: Vaping Products Second hand tobacco smoke exposure: No How often do you have a drink containing alcohol: monthly or less How often do you have six or more drinks on one occasion: Never AUDIT-C Alcohol total score: 1 Non-prescribed substance use: marijuana (any form) Little interest or pleasure in doing things: nearly every day Feeling down, depressed, or hopeless: more than half the days service: No Exam Narrative: Exam Narrative: Thin, well-developed patient in obvious mild distress and anxiety. He is a bit disheveled. Alert and oriented. Answers questions appropriately. Mood and affect are appropriate. Thoughts are goal oriented and rational. Patient speaks in full sentences without needing to catch his breath. He has normal oxygen saturation, normal respiratory rate. He speaks without difficulty. HEENT: Normocephalic atraumatic. Pupils are equally round reactive to light. Extraocular muscles are intact. Conjunctivae are moist without any icterus noted. Moist mucous membranes. Posterior pharynx is normal. Neck is soft without any lymphadenopathy or thyromegaly. No masses are appreciated. Cardiovascular: Heart is regular rate and rhythm S1 and S2 are present without any murmurs. Lungs: Clear to auscultation bilaterally no wheezes rhonchi or rales are appreciated. Patient takes deep breaths without any discomfort. Abdomen: Soft and nontender nondistended with normal bowel sounds. No guarding or rebound. No masses or organomegaly appreciated. Extremities: Bilateral lower extremities are without edema. Normal DP and PT pulses. Negative Homans sign. No calf swelling, no palpable cords. Joints appear normal. No tenderness with movement at the hip, knee or ankle on the right. Skin: Well perfused without any obvious rashes. Patient has mild acne. Const: Vital Signs, click to edit/add: Vital Signs - 24 hr 08/25/24 21:21 08/25/24 21:44 Temperature 99.1 F Pulse Rate 86 Pulse Rate [Left P ulse Oximeter] 76 Respiratory Rate 18 Blood Pressure [Ri ght Upper Arm] 131/73 Pulse Oximetry 97 98 Oxygen Delivery Me thod Room Air Course Course ED Course: EKG was done, read by me, shows normal sinus rhythm with a pulse of 66. Had a long discussion with the patient today that I do think his anxiety is playing a role in his symptoms and I do not think he has a DVT, cancer or coronary artery disease as the cause of his symptoms. He stated that he was in agreement that his anxiety has been uncontrolled and he would like help with that. He does have an appoint with his primary care provider in approximately 11 days. I told he can certainly keep that appointment to discuss a long-acting anxiety lytic and he should start seeing a counselor, both he and his dad agreed that these were good ideas. In the meantime while he was here and did give him a dose of lorazepam which did help him feel significantly better. And at this time will send him home with some hydroxyzine to see if this helps as well. Vital Signs Vital signs: Initial Vital Signs Temperature 99.1 F 08/25/24 21:21 Temperature Source Temporal Artery Scan 08/25/24 21:21 Pulse Rate 76 08/25/24 21:21 Pulse Rhythm Regular 08/25/24 21:21 Respiratory Rate 18 08/25/24 21:21 Blood Pressure 131/73 08/25/24 21:21 Blood Pressure Mean 92 08/25/24 21:21 Blood Pressure Position Sitting 08/25/24 21:21 Pulse Oximetry 97 08/25/24 21:21 Oxygen Delivery Method Room Air 08/25/24 21:21 Vital Signs Temperature 99.1 F 08/25/24 21:21 Pulse Rate 76 08/25/24 21:21 Respiratory Rate 18 08/25/24 21:21 Blood Pressure 131/73 08/25/24 21:21 Pulse Oximetry 97 08/25/24 21:21 Oxygen Delivery Method Room Air 08/25/24 21:21 Temperature 99.1 F 08/25/24 21:21 Pulse Rate 86 08/25/24 21:44 Respiratory Rate 18 08/25/24 21:21 Blood Pressure 131/73 08/25/24 21:21 Pulse Oximetry 98 08/25/24 21:44 Oxygen Delivery Method Room Air 08/25/24 21:21 Medical Decision Making MDM Narrative Medical decision making narrative: 24-year-old male with anxiety. Treatment plan per above. Discharge Plan Discharge Clinical Impression: Anxiety Instructions: Anxiety (ED) Additional Instructions: You should follow-up with your primary care provider to discuss seeing a counselor he anti discussed daily medications for anxiety. In the meantime I will send you home with hydroxyzine which is something you can take when you are acutely anxious. This medication can make you feel drowsy so do not drive or operate heavy machinery after you take it Prescriptions: New hydroxyzine HCl 25 mg tablet 25 mg PO TID PRNQty: 10 0RF Follow Up/Referrals: Conchita Cedillo PA-C [Primary Care Provider] - Stand Alone Forms: [employer] Info Instructions
[2024-08-25 22:15] VITALS: PULSE 61; O2SAT 98
--- OUTSIDE RECORDS SUMMARY | 2024-08-25 22:15 | XMS_ITS | Clinical Summary ---
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
--- OUTSIDE RECORDS SUMMARY | 2024-08-25 22:15 | XMS_ITS | Referral Summary ---
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
--- OUTSIDE RECORDS SUMMARY | 2024-08-25 22:15 | XMS_ITS | Clinical Summary ---
Author Organization [facility] Address [address] [address] Phone Care Team Providers Care Sweeper Brush Maker Machine Name Role Phone Unavailable Primary Care Provider Unavailabl e Allergies No known active allergies Medications No known medications Immunizations Name Administration Dates Next Due COVID-19 Vaccine: Pfizer Dos e 1 (Purple- 12+ Yrs) [facility] 03/04/2021 Tdap (7 years and older) 07/13/2017 Social History Tobacco Use Types Packs/Day Years Used Date Smoking Tobacco: Never Assessed Sex and Gender Information Value Date Recorded Sex Assigned at Not on file 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
== END 2024-08-25 22:32 | disposition home or self-care (01) ==
LOC: ED 22:13
PROVIDERS: Emergency Provider Family Medicine; PCP Physician Assistant Medical
DX: F41.9 Anxiety disorder, unspecified (principal)
CPT/HCPCS: 93005; 94761; 96374; 99284; J2060

== ENCOUNTER 2024-09-04 11:15 | Outpatient (CLI) | payer OTHER, SELFPAY ==
--- OUTSIDE RECORDS SUMMARY | 2024-09-04 11:18 | XMS_ITS | Clinical Summary ---
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
--- OUTSIDE RECORDS SUMMARY | 2024-09-04 11:18 | XMS_ITS | Referral Summary ---
Author Organization [facility] Address Formerly [facility] [place] [address] Care Team Providers Care Spice Miller Name Role Phone [facility]- Primary Care Provider Allergies No known [...] on file Legal Sex Male 9:53 PM NNPS Gender Identity Not on file Sexual Orientation [...] of Treatment Not on file Care Teams Spice Miller Relationship Specialty Start Date End Date [facility]- [address] [place] [address] PCP - General 07/24/23
--- OUTSIDE RECORDS SUMMARY | 2024-09-04 11:19 | XMS_ITS | Clinical Summary ---
Author Organization [facility] Address [address] [address] Phone Care Team Providers Care Third Cook Name Role Phone Unavailable Primary Care Provider Unavailabl e Allergies No known active allergies Medications No known medications Immunizations Name Administration Dates Next Due COVID-19 Vaccine: Pfizer Dos e 1 (Purple- 12+ Yrs) [facility] 03/04/2021 Tdap (7 years and older) 07/13/2017 Social History Tobacco Use Types Packs/Day Years Used Date Smoking Tobacco: Never Assessed Sex and Gender Information Value Date Recorded Sex Assigned at Not on file Legal Sex Male 6:07 PM [employer]PER[employer] Gender Identity Not on file Sexual Orientation Not on file Last Filed Vital Signs Vital Sign Reading Time Taken Comments Blood Pressure 127/72 07/13/2017 10:21 PM CDT Pulse 88 07/13/2017 10:21 PM CDT Temperature 36.6 C (97.9 F) 07/13/2017 10:21 PM CDT Respiratory Rate 16 07/13/2017 10:21 PM CDT [...] - 19+ 3-dose series) 2021 COVID-19 Vaccine (2023-2 5 season) 2024 03/04/2021 Influenza Vaccine Seasonal (Standing Order) (#1) 2024 TETANUS (Standing Order) 07/13/2027 07/13/2017 PERTUSSIS (Standing Order) Completed 07/13/2017 Pneumococcal/PCV20 Vaccine: Pediatrics (2-5 yrs) and At-Risk Patients (6-64 yrs) (Standing Order) Aged Out No longer eligible b ased on patient's age to complete this topic Insurance [facility]
== END 2024-09-04 11:16 | disposition home or self-care (01) ==
PROVIDERS: PCP Physician Assistant Medical; Visit Provider Physician Assistant Medical
DX: R53.83 Other fatigue (principal); F32.A Depression, unspecified; F41.9 Anxiety disorder, unspecified
CPT/HCPCS: 82607; 84443